=== PATIENT | female | born 1955 | race Hispanic/Latino ===

== ENCOUNTER 2020-07-14 04:11 | Emergency (ER) | payer MEDICARE ==
[2020-07-14] MEDS ORDERED: Ketorolac Tromethamine 30 MG/ML VIAL ONE (04:47)
[2020-07-14] MEDS ORDERED: HYDROcodone/Acetaminophen 10/325 mg Tablet ONE (04:47)
[2020-07-14] MEDS ORDERED: Fentanyl 100 MCG/2 ML VIAL ONE (05:57)
== END 2020-07-14 06:10 | disposition home or self-care (01) ==
LOC: ERS 04:11
DX: M17.11 Unilateral primary osteoarthritis, right knee (principal)
CPT/HCPCS: 96372; 99283; J1885; J3010